=== PATIENT | female | born 1995 | race Caucasian/White ===

== ENCOUNTER 2021-06-03 05:50 | Day surgery (SDC) | payer BC, OTHER ==
[~2021-06-03] VITALS: Ht 175.3 cm; Wt 81.0 kg
[2021-06-03] MEDS ORDERED: CHLORHEXIDINE 15 ML UDC ONE (06:08)
[2021-06-03 06:09] VITALS: BP 122/80
[2021-06-03] MEDS ORDERED: PLEASE ENTER ALLERGIES MC SCH (06:30)
[2021-06-03] MEDS ORDERED: CHLORHEXIDINE 15 ML UDC PO ONE (06:30)
[2021-06-03] MEDS ORDERED: LACTATED RINGERS 1,000 ML IV SCH ×2 (06:30→10:00)
[2021-06-03] MEDS ORDERED: PLEASE ENTER HEIGHT AND WEIGHT MC SCH (06:30)
[2021-06-03 06:44] LABS: HCG UR SG 1.015 (1.003-1.030)
[2021-06-03] MEDS ORDERED: NORE-88 PO (06:48)
[2021-06-03] MEDS ORDERED: MIDAZOLAM 1 MG/ML, 2ML ONE (06:49)
[2021-06-03] MEDS ORDERED: FENTANYL PF 100 MCG/2ML ONE ×3 (06:49→10:05)
[2021-06-03] MEDS ORDERED: FENTANYL PF 100 MCG/2ML IV PRN (07:00)
[2021-06-03] MEDS ORDERED: ONDANSETRON 2MG/ML, 2ML IVPush PRN ×2 (07:00→10:00)
[2021-06-03] MEDS ORDERED: MEPERIDINE/PF 25MG/0.5ML IVPush PRN (07:00)
[2021-06-03] MEDS ORDERED: PROMETHAZINE 25 MG/ML, 1ML IVPush PRN (07:00)
[2021-06-03] MEDS ORDERED: OXYcodone 5 MG/5 ML ORAL.SOL UDC PO PRN (07:00)
[2021-06-03] MEDS ORDERED: HYDROcodone/APAP 7.5-325MG/15ML UDC PO PRN (07:00)
[2021-06-03] MEDS ORDERED: HYDROmorphone 1 MG/ML, 1ML INJ IVPush PRN (07:00)
[2021-06-03] MEDS ORDERED: EPINEPHRINE 1 MG/ML, 1ML ONE (07:04)
[2021-06-03] MEDS ORDERED: BUPIVACAINE/PF 0.25% ONE (07:04)
[2021-06-03] MEDS ORDERED: INTERCEED 3 X 4 INCH DRESSING ONE (07:06)
[2021-06-03] MEDS ORDERED: SODIUM CHLORIDE 0.9% 100 ML ONE (07:17)
[2021-06-03] MEDS ORDERED: VASOPRESSIN 20 UNIT/ML, 1ML ONE (07:18)
[2021-06-03] MEDS ORDERED: DEXAMETHASONE 4 MG/ML, 1ML ONE (08:46)
[2021-06-03] MEDS ORDERED: ONDANSETRON 2MG/ML, 2ML ONE (08:46)
[2021-06-03] MEDS ORDERED: SUCCINYLCHOLINE 20 MG/ML, 10ML ONE (08:46)
[2021-06-03] MEDS ORDERED: ROCURONIUM 10MG/ML,5ML ONE (08:46)
[2021-06-03] MEDS ORDERED: PROPOFOL 10 MG/ML, 20ML ONE (08:46)
[2021-06-03] MEDS ORDERED: NEOSTIGMINE 1 MG/ML, 10ML ONE (08:46)
[2021-06-03] MEDS ORDERED: GLYCOPYRROLATE 0.2MG/1ML, 5ML ONE (08:46)
[2021-06-03] MEDS ORDERED: CEFAZOLIN 1,000 MG ONE (08:46)
[2021-06-03] MEDS ORDERED: MEPERIDINE/PF 25MG/ML,1ML ONE (09:45)
[2021-06-03] MEDS ORDERED: IBUPROFEN 600 MG TABLET PO PRN (10:00)
[2021-06-03] MEDS ORDERED: HYDROcodone/APAP 5/325 TABLET PO PRN (10:00)
[2021-06-03] MEDS ORDERED: PROMETHAZINE 25 MG SUPP PR ONE (10:00)
== END 2021-06-03 13:22 | disposition home or self-care (01) ==
LOC: OUT 05:50 → EDBD 07:30 → MERGE 07:30 → OUT 13:22
PROVIDERS: ATTEND Obstetrics & Gynecology Female Pelvic Medicine and Reconstructive Surgery
DX: D25.2 Subserosal leiomyoma of uterus (principal); N94.6 Dysmenorrhea, unspecified; N92.0 Excessive and frequent menstruation with regular cycle; I73.00 Raynaud's syndrome without gangrene; Z79.899 Other long term (current) drug therapy
CPT/HCPCS: 58350; 58545; 81025; 88305; C1765; J0171; J0330; J0690; J1100; J2175; J2250; J2405; J2704; J2710; J3010; J7120; S2900